=== PATIENT | female | born 1985 | race Caucasian/White ===

== ENCOUNTER 2021-06-29 09:09 | Emergency (ER) | payer BC, SELFPAY ==
[2021-06-29 10:01] VITALS: BP 195/121; PULSE 97; RESP 14; TEMP 37; O2SAT 100; BMI 34.3
[2021-06-29 10:05] LABS: UTC Strep Screen (Rapid) Positive (Negative)
--- NOTE | 2021-06-29 10:34 | HMH.EDUTC ---
[facility] [place] Disposition Clinical Impression: Strep throat Disposition: Home, Self-Care Condition on Discharge: Good Instructions: Strep Throat, DI for Strep Throat Additional Instructions: Drink plenty of fluids. Take tylenol or ibuprofen for pain or fever. Take the medications as directed. Follow up with your regular doctor. GO TO THE ER FOR ANY WORSENING SYMPTOMS Throw your tooth brush away and get a new one. Prescriptions: Ondansetron [Zofran 4mg ODT] 4 mg PO Q8HP PRN #20 tab PRN Reason: Nausea Transmission Status: Received by [id number] predniSONE [Deltasone 10mg tablet] 10 mg PO BID 3 Days #6 tab Transmission Status: Received by [id number] Cefdinir [Omnicef 300mg Capsule] 300 mg PO BID #20 cap Transmission Status: Received by [id number] Referrals: Mark Galvan MD [Primary Care Provider] - Time of Disposition: 10:37 Medical Decision Making - Medical Records Medical records reviewed: No: I reviewed the patient's medical records. - Isidro Inquiry Pt receiving controlled substance: No Vital Signs: 06/29/21 10:01 06/29/21 10:51 Temperature 98.6 F 98.6 F Temperature Source Oral Pulse Rate 97 H Pulse Rate [Left] 97 H Respiratory Rate 14 14 Blood Pressure 182/111 H Blood Pressure [Right Arm] 195/121 H Blood Pressure Mean [Right Arm] 145 02 Sat by Pulse Oximetry 100 - Lab Data Lab results reviewed: Yes: I reviewed the patient's lab results. Lab Results 06/29/21 10:01: Strep Scn Rapid Clinic Positive A [facility] [place] HPI - General Stated complaint: sore throat Time Seen by Provider: 06/29/21 10:15 Mode of Arrival: Ambulatory Source of Information: Patient Limitations: No Limitations Description of Symptoms (Recalled from Triage Doc. by RN): pt c/o a sore throat x2 days. HEENT Symptoms (Recalled from RN notes): Yes (sore throat) Resp Symptoms (Recalled from RN notes): No Skin Symptoms (Recalled from RN notes): No MS Symptoms (Recalled from RN notes): No Functional Status (Recalled from RN notes): wnl - History of Present Illness Provider Complaint: She c/o sore throat for the past 2 days. - Related Data Home Medications Medication Instructions Recorded Confirmed levonorgestrel 20 mcg/24 hours (7 INTRAUTERI 11/30/20 12/28/20 yrs) 52 mg intrauterine device Previous Rx's Medication Instructions Recorded Cefdinir [Omnicef 300mg Capsule] 300 mg PO BID #20 cap 06/29/21 Ondansetron [Zofran 4mg ODT] 4 mg PO Q8HP PRN #20 tab 06/29/21 predniSONE [Deltasone 10mg tablet] 10 mg PO BID 3 Days #6 tab 06/29/21 Allergies Allergy/AdvReac Type Severity Reaction Status Date / Time amoxicillin [AMOXICILLIN] Allergy Unknown Verified 12/28/20 10:35 - Worker's Comp Is this a Worker's Comp case?: No [facility] History - Hepatitis A Screen Drug use history?: No High risk sexual behaviors?: No History of sexually transmitted infection?: No Currently employed?: No Childcare worker?: No Do you have indoor plumbing?: Yes Do you have electricity?: Yes Attestation statement:: This patient has been screened for Hepatitis A risk factors. I have reviewed the patient's past medical history: Yes Other Surgeries: Yes: No Previous Surgery, Amputation: No Fractures: No - Social History Smoking Status: Current every day smoker Alcohol Intake: never Substance Use Type: denies use Occupational Status: other Family Hx:: No significant family history ROS Obtained: Yes All systems reviewed & no additional complaints - Constitutional Constitutional: Reports as per HPI - Eyes Eyes: Denies eye discharge - ENT Ears, Nose, Mouth, and Throat: Reports as per HPI - Cardiovascular Cardiovascular: Denies chest pain - Respiratory Respiratory: Denies chest congestion, Reports cough, Denies stridor, Denies wheezing Physical Exam - General General appearance: alert, in no apparent distress - Head Head exam:
[2021-06-29 10:51] VITALS: BP 182/111; PULSE 97; RESP 14; TEMP 37
== END 2021-06-29 10:52 | disposition home or self-care (01) ==
PROVIDERS: Emergency Provider Nurse Practitioner Family; PCP Family Medicine
DX: J02.0 Streptococcal pharyngitis (principal); F17.210 Nicotine dependence, cigarettes, uncomplicated
CPT/HCPCS: 87880; 99202; G0463